=== PATIENT | female | born 1970 | race African-American/Black ===

== ENCOUNTER 2017-04-15 21:51 | Emergency (ER) | payer OTHER ==
[2017-04-15] MEDS ORDERED: diphenhydrAMINE 50 MG/ML VIAL ONE (23:09)
[2017-04-15] MEDS ORDERED: Metoclopramide HCl 10 MG/2 ML VIAL ONE (23:09)
== END 2017-04-16 00:12 | disposition home or self-care (01) ==
LOC: ERS 21:51
DX: R51 Headache (principal); E16.2 Hypoglycemia, unspecified; F17.210 Nicotine dependence, cigarettes, uncomplicated
CPT/HCPCS: 96365; 96375; J1200; J2765

== ENCOUNTER 2023-05-01 15:04 | Outpatient (CLI) | payer BC | END 2023-05-01 15:05 | disposition home or self-care (01) | LOC: BICCT 15:04 | PROVIDERS: ATTEND Nurse Practitioner Family | DX: Z12.31 Encounter for screening mammogram for malignant neoplasm of breast (principal); Z12.2 Encounter for screening for malignant neoplasm of respiratory organs; F17.210 Nicotine dependence, cigarettes, uncomplicated; Z80.3 Family history of malignant neoplasm of breast | CPT/HCPCS: 71271; 77063; 77067 ==